=== PATIENT | female | born 1965 | race Caucasian/White ===

== ENCOUNTER → 2021-09-12 | Outpatient (CLI) | payer OTHER ==
[~2021-09-12] MED LIST: COLCHICINE0.6 M1 PO; IBUPROFEN800 MG PO; LEXAPRO20 MG PO; LYRICA100 MG PO; PLAQUENIL 200200 MG PO; PREDNISONE 5 MG5 MG PO; SEROQUEL25 MG PO
[2021-09-12 19:07] LABS: HEMOGLOBIN 13.3 gm/dl (12.3-15.3); RED BLOOD COUNT 4.19 M/UL (4.00-5.10); WHITE BLOOD COUNT 7.8 K/UL (4.5-11.0)
[2021-09-12 19:28] LABS: BUN/CREATININE RATIO 17 (0-10)
== END ==
LOC: LAB 17:47
PROVIDERS: Internal Medicine Rheumatology
DX: Z51.81 Encounter for therapeutic drug level monitoring (principal); M05.79 Rheumatoid arthritis with rheumatoid factor of multiple sites without organ or systems involvement; R10.11 Right upper quadrant pain
CPT/HCPCS: 80053; 85025; 85652; 86140